=== PATIENT | female | born 1995 | race Caucasian/White ===

== ENCOUNTER 2020-06-30 08:00 | Day surgery (SDC) | payer OTHER, MEDICARE ==
[~2020-06-30] VITALS: Ht 152.4 cm; Wt 76.8 kg
[~2020-06-30 08:00] MED LIST: BUPROPION HCL100 MG PO; CLONAZEPAM0.5 MG PO; ESTRADIOL NORETH PO; FLUOXETINE HCL40 MG PO; IBUPROFEN600 MG PO; L-METHYLFOLATE15 M1 PO; LEVOTHYROXINE50 MCG PO; LORATADINE10 MG PO; METFORMIN HCL500 MG PO; OXYCODON-ACETA1 EAC2 PO; QUETIAPINE FUM300 MG PO; RISPERIDONE0.5 MG PO; TOPIRAMATE25 MG PO; TYLENOL EXTRA500 MG PO; VITAMIN D250000 UNIT PO
--- NOTE | 2020-06-30 09:51 | NUR ---
PATIENT AND MOTHER UPDATED ON SURGICAL SCHEDULE. BOTH VERBALIZE UNDERSTANDING AND BOTH DENY NEEDS AT THIS TIME.
--- NOTE | 2020-06-30 11:19 | NUR ---
06/30/20 1119 Jyothi Kirby 1115 PT TO PACU DRAWSY, O2 VIA MASK AT 7L
--- NOTE | 2020-06-30 14:51 | EKG ---
[facility] [address] [place], [place] [address] Signed Normal sinus rhythm Normal ECG When compared with ECG of 06-MAR-2019 07:43, No significant change was found Confirmed by SAGE BAILON DO ([id number]) on 06/30/2020 2:51:14 PM Electronically Signed By: SAEG BAILON DO 06/30/20 145 PATIENT NAME: MARITZA PEDERSON DARIELA Electrocardiogram DATE OF : [birth year] PHYSICIAN: SAGE BAILON DO REPORT #: [id number] REPORT IS CONFIDENTIAL AND NOT TO BE RELEASED WITHOUT AUTHORIZATION
--- NOTE | 2020-07-06 12:37 | OR ---
[facility] [address] [place], [place] [address] Signed DATE OF OPERATION: 06/30/2020 SURGEON: Nadia Angeles MD PREOPERATIVE DIAGNOSES: Misplaced IUD, Down syndrome, abnormal bleeding. POSTOPERATIVE DIAGNOSES: Misplaced IUD, Down syndrome, abnormal bleeding. PROCEDURE: Removal of misplaced IUD and replacement with Mirena IUD. ANESTHESIA: MAC. ESTIMATED BLOOD LOSS: Minimal. DRAINS: None. INDICATIONS AND FINDINGS: The patient is a 25-year-old female, 0 who is affected by Down syndrome. She does not do well with any vaginal bleeding. She has used the Mirena previously with good results. Her IUD was replaced last year and initially she did very well, but over the last few months, she had increasing bleeding and cramping. An ultrasound revealed that the IUD was in the lower segment of the uterus. Because of this, this was felt necessary to remove and replace this. At the time of surgery, exam under anesthesia revealed that she is virginal. She had a normal-size uterus, which was midposition. The uterus sounded to 7.5 cm. DESCRIPTION OF PROCEDURE: The patient was prepped and draped in the dorsal lithotomy position. A medium Caty speculum was placed and the anterior lip of the cervix was grasped with a single-tooth tenaculum. The Mirena IUD was then removed without any difficulty. The cavity was then sounded to 7.5 cm. The endocervical canal was then dilated slightly. The Mirena IUD was then placed at the fundus of the uterus and deployed per instructions. Following this, the strings were trimmed and the tenaculum removed. There was no evidence of any ongoing bleeding from the cervix. The speculum was then removed. Electronically Signed By: NADIA ANGELES MD 07/06/20 1237 PATIENT NAME: BGMARITZA LYLE OPERATIVE REPORT DATE OF : [birth year] REPORT #: [id number] PHYSICIAN: NADIA ANGELES MD PCP: ODILIA ALEXANDER PAC REPORT IS CONFIDENTIAL AND NOT TO BE RELEASED WITHOUT AUTHORIZATION [facility] [address] [place] [id number] Signed The patient was taken to the recovery room in good condition. Nadia Angeles MD PJW/MODL /[id number] Copies: ~ Electronically Signed By: NADIA ANGELES MD 07/06/20 1237 PATIENT NAME: BGMARITZA OPERATIVE REPORT DATE OF : [birth year] REPORT #: [id number] PHYSICIAN: NADIA ANGELES MD PCP: ODILIA ALEXANDER PAC REPORT IS CONFIDENTIAL AND NOT TO BE RELEASED WITHOUT AUTHORIZATION
== END 2020-06-30 12:15 | disposition home or self-care (01) ==
LOC: DS 08:00
PROVIDERS: ATTEND Obstetrics & Gynecology
PROC: 0UH97HZ Insertion of Contraceptive Device into Uterus, Via Natural or Artificial Opening (ICD-10-PCS; 2020-06-30)
PROC: 0UPD7HZ Removal of Contraceptive Device from Uterus and Cervix, Via Natural or Artificial Opening (ICD-10-PCS; principal; 2020-06-30 09:15)
DX: T83.32XA Displacement of intrauterine contraceptive device, initial encounter (principal); E78.00 Pure hypercholesterolemia, unspecified; F34.1 Dysthymic disorder; E66.9 Obesity, unspecified; Q90.9 Down syndrome, unspecified; I10 Essential (primary) hypertension; E11.9 Type 2 diabetes mellitus without complications; J45.909 Unspecified asthma, uncomplicated; G43.909 Migraine, unspecified, not intractable, without status migrainosus; N93.9 Abnormal uterine and vaginal bleeding, unspecified
CPT/HCPCS: 00940; 93005; 93010; J1885; J2001; J2250; J2405; J2704; J2765; J7121

== ENCOUNTER 2020-11-04 17:27 | Emergency (ER) | payer OTHER, MEDICARE ==
[~2020-11-04] VITALS: Ht 152.4 cm; Wt 76.7 kg
--- OUTSIDE RECORDS SUMMARY | 2020-11-04 17:30 | XMS ---
PreManage Notification: MARITZA PEDERSON Security Machine Stemmer Events No recent Security Events currently on file CRITERIA MET - [facility] CARE PROVIDERS There are no care providers on record at this time. Steven has no Care Guidelines for this patient. [place] VISIT COUNT (12 MO.) 1 [facility] [place] TOTAL 1 NOTE: Visits indicate total known visits. ED/C VISIT TRACKING (12 MO.) 11/04/2020 17:28 [facility] [place] TYPE: Emergency COMPLAINT: - URINE PROBLEM,WEAKNESS INPATIENT VISIT TRACKING (12 MO.) No inpatient visits to display in this time frame [email or web address]
== END 2020-11-04 21:56 | disposition home or self-care (01) ==
LOC: ED 17:27
DX: R42 Dizziness and giddiness (principal); R53.83 Other fatigue; R41.0 Disorientation, unspecified; T50.915A Adverse effect of multiple unspecified drugs, medicaments and biological substances, initial encounter; Q90.9 Down syndrome, unspecified; Z79.899 Other long term (current) drug therapy
CPT/HCPCS: 80053; 81001; 84443; 85025; 99284; J7030

== ENCOUNTER 2020-11-09 17:46 | Emergency (ER) | payer OTHER, MEDICARE ==
[~2020-11-09] VITALS: Ht 152.4 cm; Wt 74.8 kg
--- OUTSIDE RECORDS SUMMARY | 2020-11-09 17:48 | XMS ---
PreManage Notification: MARITZA PEDERSON Security Crozer Events No recent Security Events currently on file CRITERIA MET - [facility] - 2 Visits in 30 Days CARE PROVIDERS YOHANNES PEPE Registered Nurse: Psychiatric/Mental 11/05/2020-Current Health PHONE: Unknown Steven has no Care Guidelines for this patient. Venus VISIT COUNT (12 MO.) 2 [facility] TOTAL 2 NOTE: Visits indicate total known visits. ED/UCC VISIT TRACKING (12 MO.) 11/09/2020 17:47 [facility] [place] TYPE: Emergency COMPLAINT: - BRUISING/WEAKNESS 11/04/2020 17:28 [facility] [place] TYPE: Emergency COMPLAINT: - URINE PROBLEM,WEAKNESS DIAGNOSES: - Dizziness and giddiness - Disorientation, unspecified - Down syndrome, unspecified - Other fatigue - Adverse effect of multiple unspecified drugs, medicaments and biological substances, initial encounter - Other superintendent marine oil terminal (current) drug therapy - Weakness INPATIENT VISIT TRACKING (12 MO.) No inpatient visits to display in this time frame [email or web address]
[2020-11-09] MEDS ORDERED: AMANTADINE100 M1 PO (18:32)
[2020-11-09] MEDS ORDERED: TRILEPTAL300 MG PO (18:33)
--- NOTE | 2020-11-10 13:34 | EKG ---
[facility] [address] [facility] [place] [address] Signed Normal sinus rhythm Normal ECG When compared with ECG of 30-JUN-2020 09:32, No significant change was found Confirmed by SILVA DONNELLY MD ([id number]) on 11/10/2020 1:34:40 PM Electronically Signed By: SILVA DONNELLY MD 11/10/20 1334 PATIENT NAME: PEDERSONMARITZA Electrocardiogram DATE OF : [birth year] PHYSICIAN: SILVA DONNELLY MD REPORT #: [id number] REPORT IS CONFIDENTIAL AND NOT TO BE RELEASED WITHOUT AUTHORIZATION
== END 2020-11-09 21:00 | disposition home or self-care (01) ==
LOC: ED 17:46
DX: R25.1 Tremor, unspecified (principal); T36.8X5A Adverse effect of other systemic antibiotics, initial encounter; Z79.899 Other long term (current) drug therapy
CPT/HCPCS: 51701; 71045; 80053; 81001; 83605; 85025; 87040; 93005; 93010; 99284-25; J7030

== ENCOUNTER 2023-09-11 13:45 | Emergency (ER) | payer OTHER, MEDICARE ==
[~2023-09-11] VITALS: Ht 152.4 cm; Wt 90.9 kg
[~2023-09-11 13:45] MED LIST changes: +AMANTADINE100 M1 PO; +TRILEPTAL300 MG PO; +ZYRTEC10 MG PO
--- OUTSIDE RECORDS SUMMARY | 2023-09-11 13:48 | XMS ---
PreManage Notification: MARITZA PEDERSON Security Product Info Specialist Events No recent Security Events currently on file CRITERIA MET - [employer] CARE PROVIDERS ODILIA ALEXANDER Physician Senior Electrical Controls Engineer 11/10/2020-Current PHONE: Unknown YOHANNES PEPE Nurse Practitioner: Psychiatric/Mental 11/05/2020-[facility] PHONE: [phone] -, [place]- Dentist: Corporate Wellness Coordinator [facility] PHONE: [phone] -[place]- Dentist: Corporate Wellness Coordinator [facility] PHONE: [phone] Steven has no Care Guidelines for this patient. Venus VISIT COUNT (12 MO.) 1 [facility] [place] TOTAL 1 NOTE: Visits indicate total known visits. ED/UCC VISIT TRACKING (12 MO.) 09/11/2023 13:46 [facility] [place] TYPE: Emergency COMPLAINT: - MEDICAL CLEARANCE, ALLERGIC MEDICATION REACTION INPATIENT VISIT TRACKING (12 MO.) No inpatient visits to display in this time frame [email or web address]
[2023-09-11 14:27] LABS: BILIRUBIN, URINE NEGATIVE (negative); BLOOD/HGB, URINE NEGATIVE (Negative); KETONE, URINE NEGATIVE (Negative); LEUK ESTERASE, URINE SMALL (negative); NITRITE, URINE NEGATIVE (negative); PH, URINE 5.5 (5-7)
[2023-09-11 14:34] LABS: EPITHELIAL CELLS, URINE SQUAMOUS 2+ /lpf (0-1+); RED BLOOD CELLS, URINE 0-1 /hpf (0-5)
[2023-09-11 14:35] LABS: BACTERIA, URINE NONE SEEN /hpf (negative); CASTS, URINE NONE SEEN \\lpf; COLLECTION TYPE, URINE CLEAN CATCH; CRYSTALS, URINE NONE SEEN (0-1+); REFLEX CULTURE, URINE No (No)
[2023-09-11 14:44] LABS: AMPHETAMINES, URINE NEGATIVE (NEGATIVE); BARBITURATES, URINE NEGATIVE (NEGATIVE); BENZODIAZEPINE, URINE NEGATIVE (NEGATIVE); BUPRENORPHINE, URINE NEGATIVE (NEGATIVE); CANNABINOID, URINE NEGATIVE (NEGATIVE); COCAINE, URINE NEGATIVE (NEGATIVE); ECSTASY, URINE NEGATIVE (NEGATIVE); FENTANYL, URINE NEGATIVE (NEGATIVE); METHADONE, URINE NEGATIVE (NEGATIVE); OPIATES, URINE NEGATIVE (NEGATIVE); OXYCODONE, URINE NEGATIVE (NEGATIVE); PHENCYCLIDINE, URINE NEGATIVE (NEGATIVE)
[2023-09-11 14:50] LABS: EOSINOPHILS 1.3 % (0-6); HEMATOCRIT 45.2 % (35.0-50.0); HEMOGLOBIN 15.4 g/dL (12.0-18.0); LYMPHOCYTES 37.8 % (24-44); MCH 34.2 (27-36); MCHC 33.9 g/dl (30-36); MCV 100.7 fl (81-99); MONOCYTES 5.7 % (0-12); NEUTROPHILS 54.2 % (39-80); PLATELET COUNT 230 K/uL (140-440); RBC 4.49 M/ul (4.3-5.7); RDW 13.6 (10.5-15.0)
[2023-09-11] MEDS ORDERED: hydrOXYzine pamoate 25 MG CAP PO PRN (15:00)
[2023-09-11] MEDS ORDERED: ESTRACE2 MG PO (15:08)
[2023-09-11] MEDS ORDERED: GUANFACINE HCL E3 MG PO (15:08)
[2023-09-11] MEDS ORDERED: TOPAMAX50 MG PO (15:10)
[2023-09-11] MEDS ORDERED: FLUOXETINE HCL60 MG PO (15:14)
[2023-09-11 15:15] LABS: ACETAMINOPHEN 0 ug/mL (10-30); ALBUMIN 3.2 g/dL (3.4-5.0); ALBUMIN/GLOBULIN RATIO 0.76 (1.1-2.4); ALCOHOL, MEDICAL <3 ng/dL (<3); ALKALINE PHOSPHATASE 78 U/L (46-116); ALT (SGPT) 28 U/L (14-59); ANION GAP 15.8 (7-21); AST (SGOT) 20 U/L (15-37); BILIRUBIN, TOTAL 0.4 ng/dL (0.2-1.0); BUN/CREATININE RATIO 13.15 (6.0-28.6); CALCIUM 8.9 mg/dL (8.5-10.1); CARBON DIOXIDE 22 mmol/L (21-32); CHLORIDE 104 mmol/L (98-107); CREATININE, SERUM 0.76 mg/dL (0.55-1.02); GLOMERULAR FILTRATION RATE,EST 109 mL/min (>60); POTASSIUM 3.8 mmol/L (3.5-5.1); PROTEIN, TOTAL 7.4 g/dL (6.4-8.2); SALICYLATE 1.4 mg/dL (2.8-20.0); TSH, 3RD GENERATION 2.622 uIU/mL (0.358-3.740); UREA NITROGEN 10 mg/dL (7-18)
[2023-09-11] MEDS ORDERED: CLARITIN10 M2 PO (15:16)
[2023-09-11] MEDS ORDERED: SEROQUEL50 MG PO (15:16)
[2023-09-11] MEDS ORDERED: ATIVAN1 MG PO (15:28)
[2023-09-11] MEDS ORDERED: LEVOTHYROXINE50 MC1 PO (15:28)
[2023-09-11] MEDS ORDERED: VISTARIL25 MG PO (16:38)
[2023-09-11 17:10] VITALS: BP 94/64
== END 2023-09-11 17:10 | disposition home or self-care (01) ==
LOC: ED 13:45
PROVIDERS: Emergency Medicine
DX: F41.9 Anxiety disorder, unspecified (principal); R45.1 Restlessness and agitation; F84.0 Autistic disorder; Q90.9 Down syndrome, unspecified; F31.9 Bipolar disorder, unspecified; Z79.890 Hormone replacement therapy; Z79.899 Other long term (current) drug therapy
CPT/HCPCS: 36415; 80053; 80307; 81001; 84443; 84703; 85025; 99284; G0480; Q0177

== ENCOUNTER 2023-10-02 19:31 | Emergency (ER) | payer OTHER, MEDICARE ==
[~2023-10-02] VITALS: Ht 152.4 cm; Wt 89.1 kg
[~2023-10-02 19:31] MED LIST changes: +ATIVAN1 MG PO; +CLARITIN10 M2 PO; +ESTRACE2 MG PO; +FLUOXETINE HCL60 MG PO; +GUANFACINE HCL E3 MG PO; +LEVOTHYROXINE50 MC1 PO; +SEROQUEL50 MG PO; +TOPAMAX50 MG PO; +VISTARIL25 MG PO
--- OUTSIDE RECORDS SUMMARY | 2023-10-02 19:34 | XMS ---
PreManage Notification: MARITZA PEDERSON Security Section Leader Screen Printing Events No recent Security Events currently on file CRITERIA MET - [facility] - [facility] [place] [facility] - 2 Visits in 30 Days CARE PROVIDERS ODILIA ALEXANDER Physician Vegetable Farm Manager 11/10/2020-Current PHONE: Unknown YOHANNES PEPE Nurse Practitioner: Psychiatric/Mental 11/05/2020-[facility] PHONE: [phone] -, [place]- Dentist: Tack Cutter [facility] PHONE: [phone] -[place]- Dentist: Tack Cutter [facility] PHONE: [phone] Steven has no Care Guidelines for this patient. Venus VISIT COUNT (12 MO.) 2 [facility] [place] TOTAL 2 NOTE: Visits indicate total known visits. ED/UCC VISIT TRACKING (12 MO.) 10/02/2023 19:32 [facility] [place] TYPE: Emergency COMPLAINT: - WEAKNESS 09/11/2023 13:[address] [facility] TYPE: Emergency COMPLAINT: - MEDICAL CLEARANCE, ALLERGIC MEDICATION REACTION DIAGNOSES: - Anxiety disorder, unspecified - Autistic disorder - Bipolar disorder, unspecified - Down syndrome, unspecified - Hormone replacement therapy - Other fine chemicals operator (current) drug therapy - Other symptoms and signs involving appearance and behavior - Restlessness and agitation INPATIENT VISIT TRACKING (12 MO.) No inpatient visits to display in this time frame [email or web address]
[2023-10-02] MEDS ORDERED: SODIUM CHLORIDE 0.9% 1,000 ML IV ONE (20:00)
[2023-10-02 20:02] LABS: BASOPHILS 1.1 % (0-2); HEMATOCRIT 44.6 % (35.0-50.0); HEMOGLOBIN 15.6 g/dL (12.0-18.0); LYMPHOCYTES 41.3 % (24-44); MCH 34.5 (27-36); MCV 98.5 fl (81-99); NEUTROPHILS 48.6 % (39-80); PLATELET COUNT 221 K/uL (140-440); RBC 4.53 M/ul (4.3-5.7); RDW 13.4 (10.5-15.0)
[2023-10-02 20:04] LABS: ALBUMIN 3.2 g/dL (3.4-5.0); ALBUMIN/GLOBULIN RATIO 0.8 (1.1-2.4); ANION GAP 12.5 (7-21); BILIRUBIN, TOTAL 0.6 ng/dL (0.2-1.0); BUN/CREATININE RATIO 15.18 (6.0-28.6); CALCIUM 8.5 mg/dL (8.5-10.1); CREATININE, SERUM 0.79 mg/dL (0.55-1.02); POTASSIUM 3.5 mmol/L (3.5-5.1); PROTEIN, TOTAL 7.2 g/dL (6.4-8.2)
[2023-10-02 20:24] LABS: BILIRUBIN, URINE NEGATIVE (negative); BLOOD/HGB, URINE NEGATIVE (Negative); KETONE, URINE NEGATIVE (Negative); LEUK ESTERASE, URINE TRACE (negative); NITRITE, URINE NEGATIVE (negative)
[2023-10-02 20:30] LABS: BACTERIA, URINE 2+ /hpf (negative); CASTS, URINE NONE SEEN \\lpf; CRYSTALS, URINE NONE SEEN (0-1+); EPITHELIAL CELLS, URINE SQUAMOUS 1+ /lpf (0-1+); RED BLOOD CELLS, URINE 0-1 /hpf (0-5); REFLEX CULTURE, URINE Yes (No)
[2023-10-02 20:38] LABS: INFLUENZA B NAA NEGATIVE (NEGATIVE); RESPIRATORY SYNCYTIAL VIR NAA NEGATIVE (NEGATIVE)
[2023-10-02] MEDS ORDERED: CEFTRIAXONE/SODIUM CHLORIDE 1 GM/100 ML PIGGYBACK IV SCH (21:00)
[2023-10-02] MEDS ORDERED: TOPIRAMATE 25 MG TAB PO SCH (21:25)
[2023-10-02] MEDS ORDERED: hydrOXYzine pamoate 25 MG CAP PO PRN (21:30)
[2023-10-02] MEDS ORDERED: QUETIAPINE FUMARATE 100 MG TAB PO SCH (21:30)
[2023-10-02] MEDS ORDERED: LORazepam 1 MG TAB PO PRN (21:30)
[2023-10-03] MEDS ORDERED: LEVOTHYROXINE SODIUM 50 MCG TAB PO SCH (07:00)
[2023-10-03] MEDS ORDERED: NITROFURANTOIN MONOHYD MACROCR 100 MG CAP PO SCH (08:00)
[2023-10-03] MEDS ORDERED: FLUOXETINE HCL 20 MG CAP PO SCH (09:00)
[2023-10-03] MEDS ORDERED: QUETIAPINE FUMARATE 25 MG TAB PO SCH (09:00)
[2023-10-03] MEDS ORDERED: QUETIAPINE FUMARATE 100 MG TAB PO SCH (21:00)
[2023-10-06 13:12] VITALS: BP 103/57
[2023-10-07] MEDS ORDERED: FLUOXETINE HCL 20 MG CAP PO SCH (09:00)
== END 2023-10-06 13:12 | disposition home or self-care (01) ==
LOC: ED 19:31
PROVIDERS: Family Medicine
DX: Q90.9 Down syndrome, unspecified (principal); Q89.9 Congenital malformation, unspecified; R62.50 Unspecified lack of expected normal physiological development in childhood; Z79.899 Other long term (current) drug therapy; Z79.890 Hormone replacement therapy; Z63.8 Other specified problems related to primary support group
CPT/HCPCS: 36415; 71045; 80053; 81001; 83880; 85025; 87088; 87502; A9270; A9270-GY; J0696; J7030; Q0177; U0002

== ENCOUNTER 2023-10-19 17:29 | Emergency (ER) | payer OTHER, MEDICARE ==
[~2023-10-19] VITALS: Ht 152.4 cm; Wt 89.4 kg
--- OUTSIDE RECORDS SUMMARY | 2023-10-19 17:32 | XMS ---
PreManage Notification: MARITZA PEDERSON Security Chaplaincy Events No recent Security Events currently on file CRITERIA MET - [facility] - [facility] - 2 Visits in 30 Days CARE PROVIDERS ODILIA ALEXANDER Physician Pearl Cutter 11/10/2020-Current PHONE: Unknown YOHANNES PEPE Nurse Practitioner: Psychiatric/Mental 11/05/2020-Current Health PHONE: [phone] -[facility] Dentist: Senior Web Analyst [facility] PHONE: [phone] -[place]- Dentist: Senior Web Analyst Current [facility] PHONE: [phone] -, [place]- Dentist: Senior Web Analyst [facility] PHONE: [phone] Steven has no Care Guidelines for this patient. Venus VISIT COUNT (12 MO.) [address] [facility] TOTAL 3 NOTE: Visits indicate total known visits. ED/UCC VISIT TRACKING (12 MO.) 10/19/2023 17:29 [facility] [place] TYPE: Emergency COMPLAINT: - NOT FEELING WELL 10/02/2023 19:32 [facility] [place] TYPE: Emergency COMPLAINT: - WEAKNESS DIAGNOSES: - Anorexia - Congenital malformation, unspecified - Down syndrome, unspecified - Hormone replacement therapy - Other tube building machine operator (current) drug therapy - Other specified problems related to primary support group - Unspecified lack of expected normal physiological development in childhood 09/11/2023 13:46 [facility] [place] TYPE: Emergency COMPLAINT: - MEDICAL CLEARANCE, ALLERGIC MEDICATION REACTION DIAGNOSES: - Anxiety disorder, unspecified - Autistic disorder - Bipolar disorder, unspecified - Down syndrome, unspecified - Hormone replacement therapy - Other tube building machine operator (current) drug therapy - Other symptoms and signs involving appearance and behavior - Restlessness and agitation INPATIENT VISIT TRACKING (12 MO.) No inpatient visits to display in this time frame [email or web address]
[2023-10-19 19:37] LABS: BILIRUBIN, URINE NEGATIVE (negative); BLOOD/HGB, URINE NEGATIVE (Negative); KETONE, URINE NEGATIVE (Negative); LEUK ESTERASE, URINE NEGATIVE (negative); NITRITE, URINE NEGATIVE (negative)
[2023-10-19 19:44] LABS: BACTERIA, URINE NONE SEEN /hpf (negative); CASTS, URINE HYALINE 1+ \\lpf; CRYSTALS, URINE NONE SEEN (0-1+); EPITHELIAL CELLS, URINE SQUAMOUS 2+ /lpf (0-1+); RED BLOOD CELLS, URINE 0-1 /hpf (0-5); REFLEX CULTURE, URINE No (No)
[2023-10-19 19:45] LABS: COLLECTION TYPE, URINE CLEAN CATCH
[2023-10-19] MEDS ORDERED: LACTATED RINGER'S 1,000 ML IV ONE (21:00)
[2023-10-19 21:15] LABS: BASOPHILS 0.8 % (0-2); EOSINOPHILS 2.9 % (0-6); HEMATOCRIT 50.3 % (35.0-50.0); HEMOGLOBIN 17.1 g/dL (12.0-18.0); LYMPHOCYTES 36.6 % (24-44); MCH 33.9 (27-36); MCHC 34.1 g/dl (30-36); MCV 99.5 fl (81-99); MONOCYTES 4.9 % (0-12); NEUTROPHILS 54.8 % (39-80); PLATELET COUNT 233 K/uL (140-440); RBC 5.06 M/ul (4.3-5.7); RDW 13.4 (10.5-15.0)
[2023-10-19 21:38] LABS: ALBUMIN 3.1 g/dL (3.4-5.0); ALBUMIN/GLOBULIN RATIO 0.74 (1.1-2.4); ANION GAP 11.1 (7-21); BILIRUBIN, TOTAL 0.4 ng/dL (0.2-1.0); BUN/CREATININE RATIO 18.66 (6.0-28.6); CREATININE, SERUM 0.75 mg/dL (0.55-1.02); MAGNESIUM 1.9 mg/dL (1.8-2.4); POTASSIUM 4.1 mmol/L (3.5-5.1); PROTEIN, TOTAL 7.3 g/dL (6.4-8.2)
[2023-10-19 22:58] VITALS: BP 105/65
== END 2023-10-19 22:59 | disposition home or self-care (01) ==
LOC: ED 17:29
PROVIDERS: Internal Medicine
DX: E86.0 Dehydration (principal); Q90.9 Down syndrome, unspecified; F31.9 Bipolar disorder, unspecified; Z79.890 Hormone replacement therapy; Z79.899 Other long term (current) drug therapy
CPT/HCPCS: 36415; 80053; 81001; 83735; 85025; 99284; J7121

== ENCOUNTER 2024-01-25 14:55 | Emergency (ER) | payer OTHER, MEDICARE ==
[~2024-01-25] VITALS: Ht 152.4 cm; Wt 85.9 kg
[2024-01-25 15:48] LABS: BILIRUBIN, URINE POSITIVE (negative); BLOOD/HGB, URINE NEGATIVE (Negative); KETONE, URINE NEGATIVE (Negative); LEUK ESTERASE, URINE TRACE (negative); NITRITE, URINE NEGATIVE (negative)
[2024-01-25 15:59] LABS: BACTERIA, URINE RARE /hpf (negative); CASTS, URINE NONE SEEN \\lpf; COLLECTION TYPE, URINE CLEAN CATCH; CRYSTALS, URINE NONE SEEN (0-1+); EPITHELIAL CELLS, URINE SQUAMOUS 3+ /lpf (0-1+); RED BLOOD CELLS, URINE 0-1 /hpf (0-5); REFLEX CULTURE, URINE No (No)
[2024-01-25] MEDS ORDERED: SODIUM CHLORIDE 0.9% 1,000 ML IV PRN (16:45)
[2024-01-25 19:54] LABS: MCH 33.9 (27-36); MCHC 33.9 g/dl (30-36)
[2024-01-25 19:57] LABS: BASOPHILS 0.7 % (0-2); HEMATOCRIT 44.9 % (35.0-50.0); HEMOGLOBIN 15.2 g/dL (12.0-18.0); LYMPHOCYTES 32.6 % (24-44); MCV 99.9 fl (81-99); MONOCYTES 5.1 % (0-12); NEUTROPHILS 59.6 % (39-80); PLATELET COUNT 223 K/uL (140-440)
[2024-01-25 20:10] LABS: ACETAMINOPHEN 0 ug/mL (10-30); ALCOHOL, MEDICAL <3 ng/dL (<3); SALICYLATE 0.7 mg/dL (2.8-20.0); TSH, 3RD GENERATION 1.088 uIU/mL (0.358-3.740)
[2024-01-25 20:17] LABS: AMPHETAMINES, URINE NEGATIVE (NEGATIVE); BARBITURATES, URINE NEGATIVE (NEGATIVE); BENZODIAZEPINE, URINE NEGATIVE (NEGATIVE); BUPRENORPHINE, URINE NEGATIVE (NEGATIVE); CANNABINOID, URINE NEGATIVE (NEGATIVE); COCAINE, URINE NEGATIVE (NEGATIVE); ECSTASY, URINE POSITIVE (NEGATIVE); FENTANYL, URINE NEGATIVE (NEGATIVE); METHADONE, URINE NEGATIVE (NEGATIVE); OPIATES, URINE NEGATIVE (NEGATIVE); OXYCODONE, URINE NEGATIVE (NEGATIVE); PHENCYCLIDINE, URINE NEGATIVE (NEGATIVE)
[2024-01-25 20:57] VITALS: BP 0/0
== END 2024-01-25 20:57 | disposition home or self-care (01) ==
LOC: ED 14:55
PROVIDERS: Emergency Medicine
DX: R30.0 Dysuria (principal); E86.0 Dehydration; Q90.9 Down syndrome, unspecified; F84.0 Autistic disorder; F31.9 Bipolar disorder, unspecified; Z79.890 Hormone replacement therapy; Z79.899 Other long term (current) drug therapy
CPT/HCPCS: 36415; 80307; 81001; 84443; 84703; 85025; 99283; G0480; J7030

== ENCOUNTER 2024-01-30 20:37 | Emergency (ER) | payer OTHER, MEDICARE ==
[~2024-01-30] VITALS: Ht 152.4 cm; Wt 100.0 kg
--- OUTSIDE RECORDS SUMMARY | 2024-01-30 20:40 | XMS ---
PreManage Notification: MARITZA PEDERSON Security Release Specialist Events No recent Security Events currently on file CRITERIA MET - [facility] - 2 Visits in 30 Days CARE PROVIDERS ODILIA ALEXANDER Physician Habitat Conservation Planner 11/10/2020-Current PHONE: Unknown YOHANNES PEPE Nurse Practitioner: Psychiatric/Mental 11/05/2020-Current Health PHONE: [phone] -[facility] Dentist: Inspector [facility] PHONE: [phone] -[place]- Dentist: Inspector [facility] PHONE: [phone] -, [place]- Dentist: Inspector [facility] PHONE: [phone] Steven has no Care Guidelines for this patient. Venus VISIT COUNT (12 MO.) [address] [facility] TOTAL 5 NOTE: Visits indicate total known visits. ED/UCC VISIT TRACKING (12 MO.) 01/30/2024 20:38 [facility] [place] TYPE: Emergency COMPLAINT: - MEDICAL CLEARANCE 01/25/2024 14:56 [facility] [place] TYPE: Emergency COMPLAINT: - POSS UTI DIAGNOSES: - Autistic disorder - Bipolar disorder, unspecified - Dehydration - Down syndrome, unspecified - Dysuria - Hormone replacement therapy - Other director long term care (current) drug therapy 10/19/2023 17:29 [facility] [place] TYPE: Emergency COMPLAINT: - NOT FEELING WELL DIAGNOSES: - Bipolar disorder, unspecified - Dehydration - Dizziness and giddiness - Down syndrome, unspecified - Hormone replacement therapy - Other custodial (current) drug therapy 10/02/2023 19:32 [facility] [place] TYPE: Emergency COMPLAINT: - WEAKNESS DIAGNOSES: - Anorexia - Congenital malformation, unspecified - Down syndrome, unspecified - Hormone replacement therapy - Other custodial (current) drug therapy - Other specified problems related to primary support group - Unspecified lack of expected normal physiological development in childhood 09/11/2023 13:[address] [facility] [place] TYPE: Emergency COMPLAINT: - MEDICAL CLEARANCE, ALLERGIC MEDICATION REACTION DIAGNOSES: - Anxiety disorder, unspecified - Autistic disorder - Bipolar disorder, unspecified - Down syndrome, unspecified - Hormone replacement therapy - Other custodial (current) drug therapy - Other symptoms and signs involving appearance and behavior - Restlessness and agitation INPATIENT VISIT TRACKING (12 MO.) No inpatient visits to display in this time frame [email or web address]
[2024-01-30] MEDS ORDERED: QUETIAPINE FUMARATE 25 MG TAB PO ONE (22:45)
[2024-01-31] MEDS ORDERED: LORazepam 1 MG TAB PO ONE (02:00)
[2024-01-31] MEDS ORDERED: QUETIAPINE FUMARATE 100 MG TAB PO SCH (07:00)
[2024-01-31] MEDS ORDERED: LEVOTHYROXINE SODIUM 50 MCG TAB PO SCH (07:00)
[2024-01-31] MEDS ORDERED: LORazepam 1 MG TAB PO PRN (07:00)
[2024-01-31] MEDS ORDERED: TOPIRAMATE 25 MG TAB PO SCH (09:00)
[2024-01-31] MEDS ORDERED: GUANFACINE HCL 1 MG TAB PO SCH (09:00)
[2024-01-31] MEDS ORDERED: FLUOXETINE HCL 20 MG CAP PO SCH (09:00)
[2024-01-31] MEDS ORDERED: QUETIAPINE FUMARATE 25 MG TAB PO SCH (09:00)
[2024-01-31 15:57] LABS: BILIRUBIN, URINE NEGATIVE (negative); BLOOD/HGB, URINE NEGATIVE (Negative); KETONE, URINE NEGATIVE (Negative); LEUK ESTERASE, URINE NEGATIVE (negative); NITRITE, URINE NEGATIVE (negative); PH, URINE 5.5 (5-7)
[2024-01-31 16:14] LABS: AMPHETAMINES, URINE POSITIVE (NEGATIVE); BARBITURATES, URINE NEGATIVE (NEGATIVE); BENZODIAZEPINE, URINE POSITIVE (NEGATIVE); BUPRENORPHINE, URINE NEGATIVE (NEGATIVE); CANNABINOID, URINE NEGATIVE (NEGATIVE); COCAINE, URINE NEGATIVE (NEGATIVE); ECSTASY, URINE POSITIVE (NEGATIVE); FENTANYL, URINE POSITIVE (NEGATIVE); METHADONE, URINE NEGATIVE (NEGATIVE); OPIATES, URINE NEGATIVE (NEGATIVE); OXYCODONE, URINE NEGATIVE (NEGATIVE); PHENCYCLIDINE, URINE NEGATIVE (NEGATIVE)
[2024-01-31] MEDS ORDERED: ED PATIENT'S OWN MED POCKET #1 XX PRN (18:15)
[2024-01-31] MEDS ORDERED: ziprasidone HCL 40 MG CAP PO SCH (21:00)
[2024-01-31] MEDS ORDERED: lamoTRIgine 25 MG TAB PO SCH (21:00)
[2024-01-31 22:55] LABS: AMPHETAMINES, URINE POSITIVE (NEGATIVE); BARBITURATES, URINE NEGATIVE (NEGATIVE); BENZODIAZEPINE, URINE NEGATIVE (NEGATIVE); BUPRENORPHINE, URINE NEGATIVE (NEGATIVE); CANNABINOID, URINE NEGATIVE (NEGATIVE); COCAINE, URINE NEGATIVE (NEGATIVE); ECSTASY, URINE POSITIVE (NEGATIVE); FENTANYL, URINE POSITIVE (NEGATIVE); METHADONE, URINE NEGATIVE (NEGATIVE); OPIATES, URINE NEGATIVE (NEGATIVE); OXYCODONE, URINE NEGATIVE (NEGATIVE); PHENCYCLIDINE, URINE NEGATIVE (NEGATIVE)
[2024-02-01 08:58] LABS: AMPHETAMINES, URINE NEGATIVE (NEGATIVE); BARBITURATES, URINE NEGATIVE (NEGATIVE); BENZODIAZEPINE, URINE NEGATIVE (NEGATIVE); BUPRENORPHINE, URINE NEGATIVE (NEGATIVE); CANNABINOID, URINE NEGATIVE (NEGATIVE); COCAINE, URINE NEGATIVE (NEGATIVE); ECSTASY, URINE NEGATIVE (NEGATIVE); FENTANYL, URINE NEGATIVE (NEGATIVE); METHADONE, URINE NEGATIVE (NEGATIVE); OPIATES, URINE NEGATIVE (NEGATIVE); OXYCODONE, URINE NEGATIVE (NEGATIVE); PHENCYCLIDINE, URINE NEGATIVE (NEGATIVE)
[2024-02-01] MEDS ORDERED: LEVONORGESTREL/ETHIN.ESTRADIOL 1 EACH TABLET PO SCH (09:00)
[2024-02-01] MEDS ORDERED: LAMICTAL25 MG PO (10:44)
[2024-02-01] MEDS ORDERED: GEODON40 MG PO (10:44)
[2024-02-01] MEDS ORDERED: GEODON20 MG PO (10:44)
[2024-02-01 16:30] VITALS: BP 89/61
== END 2024-02-01 16:30 | disposition home or self-care (01) ==
LOC: ED 20:37
PROVIDERS: Emergency Medicine; Internal Medicine
DX: F91.1 Conduct disorder, childhood-onset type (principal); Q90.9 Down syndrome, unspecified; Z79.899 Other long term (current) drug therapy; Z79.890 Hormone replacement therapy
CPT/HCPCS: 80053; 80307; 81003; 84443; 84703; 85025; 99284; A9270; A9270-GY; G0480

== ENCOUNTER 2024-05-05 20:32 | Emergency (ER) | payer OTHER, MEDICARE ==
[~2024-05-05] VITALS: Ht 152.4 cm; Wt 72.8 kg
[~2024-05-05 20:32] MED LIST changes: +GEODON20 MG PO; +GEODON40 MG PO; +LAMICTAL25 MG PO
--- OUTSIDE RECORDS SUMMARY | 2024-05-05 20:39 | XMS ---
PreManage Notification: MARITZA PEDERSON Security Completion Supervisor Events No recent Security Events currently on file CRITERIA MET - [facility] - 2 Visits in 30 Days CARE PROVIDERS YOHANNES PEPE Nurse Practitioner: Psychiatric/Mental 11/05/2020-[facility] PHONE: [phone] -[facility] Dentist: Revising Clerk Current [facility] PHONE: [phone] -[place]- Dentist: Revising Clerk [facility] PHONE: [phone] -[place]- Dentist: Revising Clerk Current [facility] PHONE: [phone] Steven has no Care Guidelines for this patient. Venus VISIT COUNT (12 MO.) 6 [facility] ([facility] TOTAL 7 NOTE: Visits indicate total known visits. ED/UCC VISIT TRACKING (12 MO.) 05/05/2024 20:32 [facility] [place] TYPE: Emergency COMPLAINT: - MEDICAL CLEARANCE [facility]24 [facility] Emergency DIAGNOSES: - Down syndrome, unspecified - Restlessness and agitation - Unspecified lack of expected normal physiological development in childhood - Aggressive Behavior - Altered Mental Status - EMS 01/30/2024 20:[address] [facility] [place] TYPE: Emergency COMPLAINT: - MEDICAL CLEARANCE DIAGNOSES: - Conduct disorder, childhood-onset type - Down syndrome, unspecified - Hormone replacement therapy - Other skilled nursing (current) drug therapy - Violent behavior 01/25/2024 14:56 [facility] [place] TYPE: Emergency COMPLAINT: - POSS UTI DIAGNOSES: - Autistic disorder - Bipolar disorder, unspecified - Dehydration - Down syndrome, unspecified - Dysuria - Hormone replacement therapy - Other longwall foreman (current) drug therapy 10/19/2023 17:29 [facility] [place] TYPE: Emergency COMPLAINT: - NOT FEELING WELL DIAGNOSES: - Bipolar disorder, unspecified - Dehydration - Dizziness and giddiness - Down syndrome, unspecified - Hormone replacement therapy - Other longwall foreman (current) drug therapy 10/02/2023 19:32 [facility] [place] TYPE: Emergency COMPLAINT: - WEAKNESS DIAGNOSES: - Anorexia - Congenital malformation, unspecified - Down syndrome, unspecified - Hormone replacement therapy - Other longwall foreman (current) drug therapy - Other specified problems related to primary support group - Unspecified lack of expected normal physiological development in childhood 09/11/2023 13:46 [facility] [place] TYPE: Emergency COMPLAINT: - MEDICAL CLEARANCE, ALLERGIC MEDICATION REACTION DIAGNOSES: - Anxiety disorder, unspecified - Autistic disorder - Bipolar disorder, unspecified - Down syndrome, unspecified - Hormone replacement therapy - Other longwall foreman (current) drug therapy - Other symptoms and signs involving appearance and behavior - Restlessness and agitation INPATIENT VISIT TRACKING (12 MO.) No inpatient visits to display in this time frame [email or web address]
[2024-05-05] MEDS ORDERED: TRAZODONE HCL 100 MG TAB PO ONE (23:45)
[2024-05-05] MEDS ORDERED: clonazePAM 1 MG TAB PO ONE (23:45)
[2024-05-05] MEDS ORDERED: ziprasidone HCL 40 MG CAP PO ONE (23:45)
[2024-05-06] MEDS ORDERED: HALOPERIDOL LACTATE 5 MG/ML VIAL ONE
[2024-05-06] MEDS ORDERED: diphenhydrAMINE HCL 50 MG/ML VIAL ONE (00:01)
[2024-05-06] MEDS ORDERED: LORazepam 2 MG/ML VIAL ONE (00:01)
[2024-05-06] MEDS ORDERED: diphenhydrAMINE HCL 50 MG/ML VIAL IM ONE (00:15)
[2024-05-06] MEDS ORDERED: LORazepam 2 MG/ML VIAL IM ONE (00:15)
[2024-05-06] MEDS ORDERED: HALOPERIDOL LACTATE 5 MG/ML VIAL IM ONE (00:15)
[2024-05-06 13:10] LABS: BASOPHILS 0.7 % (0-2); EOSINOPHILS 1.9 % (0-6); HEMATOCRIT 43.8 % (35.0-50.0); HEMOGLOBIN 15.1 g/dL (12.0-18.0); LYMPHOCYTES 36.5 % (24-44); MCH 35.2 (27-36); MCHC 34.5 g/dl (30-36); MCV 101.9 fl (81-99); MONOCYTES 4.7 % (0-12); NEUTROPHILS 56.2 % (39-80); PLATELET COUNT 217 K/uL (140-440); RDW 14.1 (10.5-15.0)
[2024-05-06 13:34] LABS: ACETAMINOPHEN 0 ug/mL (10-30); ALBUMIN 3.2 g/dL (3.4-5.0); ALBUMIN/GLOBULIN RATIO 0.91 (1.1-2.4); ALCOHOL, MEDICAL <3 ng/dL (<3); ALKALINE PHOSPHATASE 53 U/L (46-116); ALT (SGPT) 27 U/L (14-59); ANION GAP 10.7 (7-21); AST (SGOT) 16 U/L (15-37); BILIRUBIN, TOTAL 0.5 ng/dL (0.2-1.0); BUN/CREATININE RATIO 8.16 (6.0-28.6); CALCIUM 8.8 mg/dL (8.5-10.1); CARBON DIOXIDE 27 mmol/L (21-32); CHLORIDE 108 mmol/L (98-107); CREATININE, SERUM 0.98 mg/dL (0.55-1.02); GLOMERULAR FILTRATION RATE,EST 80 mL/min (>60); POTASSIUM 3.7 mmol/L (3.5-5.1); PROTEIN, TOTAL 6.7 g/dL (6.4-8.2); SALICYLATE 0.5 mg/dL (2.8-20.0); TSH, 3RD GENERATION 3.722 uIU/mL (0.358-3.740); UREA NITROGEN 8 mg/dL (7-18)
[2024-05-06 14:52] LABS: INFLUENZA B NAA NEGATIVE (NEGATIVE); RESPIRATORY SYNCYTIAL VIR NAA NEGATIVE (NEGATIVE)
[2024-05-06 18:08] LABS: BILIRUBIN, URINE NEGATIVE (negative); BLOOD/HGB, URINE LARGE (Negative); KETONE, URINE NEGATIVE (Negative); LEUK ESTERASE, URINE NEGATIVE (negative); NITRITE, URINE NEGATIVE (negative); PH, URINE 8.5 (5-7)
[2024-05-06 18:14] LABS: BACTERIA, URINE RARE /hpf (negative); CASTS, URINE NONE SEEN \\lpf; CRYSTALS, URINE NONE SEEN (0-1+); EPITHELIAL CELLS, URINE SQUAMOUS 3+ /lpf (0-1+); RED BLOOD CELLS, URINE 41-50 /hpf (0-5); REFLEX CULTURE, URINE No (No)
[2024-05-06 18:15] LABS: COLLECTION TYPE, URINE CLEAN CATCH
[2024-05-06 18:23] LABS: AMPHETAMINES, URINE NEGATIVE (NEGATIVE); BARBITURATES, URINE NEGATIVE (NEGATIVE); BENZODIAZEPINE, URINE NEGATIVE (NEGATIVE); BUPRENORPHINE, URINE NEGATIVE (NEGATIVE); CANNABINOID, URINE NEGATIVE (NEGATIVE); COCAINE, URINE NEGATIVE (NEGATIVE); ECSTASY, URINE POSITIVE (NEGATIVE); FENTANYL, URINE NEGATIVE (NEGATIVE); METHADONE, URINE NEGATIVE (NEGATIVE); OPIATES, URINE NEGATIVE (NEGATIVE); OXYCODONE, URINE NEGATIVE (NEGATIVE); PHENCYCLIDINE, URINE NEGATIVE (NEGATIVE)
[2024-05-06] MEDS ORDERED: OLANZapine 10 MG TABDIS PO SCH (21:00)
[2024-05-07] MEDS ORDERED: NITROFURANTOIN MONOHYD MACROCR 100 MG CAP PO SCH (08:00)
[2024-05-07] MEDS ORDERED: ziprasidone HCL 40 MG CAP PO SCH (09:00)
[2024-05-07] MEDS ORDERED: LEVONORGESTREL1 EAC1 PO (12:31)
[2024-05-08] MEDS ORDERED: NITROFURANTOIN MONOHYD MACROCR 100 MG CAP ONE (11:54)
--- NOTE | 2024-05-08 19:20 | EKG ---
[facility] [address] [facility] [facility] [place] [address] Signed Normal sinus rhythm with sinus arrhythmia Normal ECG When compared with ECG of 09-NOV-2020 18:51, No significant change was found Confirmed by Jeb Romero MD ([id number]) on 05/08/2024 7:20:44 PM Electronically Signed By: JEB ROMERO MD 05/08/241919 PATIENT NAME: BGMARITZA Electrocardiogram DATE OF : [birth year] PHYSICIAN: JEB ROMERO MD REPORT #: [id number] REPORT IS CONFIDENTIAL AND NOT TO BE RELEASED WITHOUT AUTHORIZATION
[2024-05-11 22:24] LABS: BILIRUBIN, URINE NEGATIVE (negative); BLOOD/HGB, URINE NEGATIVE (Negative); KETONE, URINE NEGATIVE (Negative); LEUK ESTERASE, URINE NEGATIVE (negative); NITRITE, URINE NEGATIVE (negative)
[2024-05-11 22:27] LABS: BACTERIA, URINE RARE /hpf (negative); CASTS, URINE NONE SEEN \\lpf; COLLECTION TYPE, URINE CLEAN CATCH; CRYSTALS, URINE NONE SEEN (0-1+); EPITHELIAL CELLS, URINE SQUAMOUS 2+ /lpf (0-1+); REFLEX CULTURE, URINE No (No)
[2024-05-15] MEDS ORDERED: lamoTRIgine 25 MG TAB PO SCH (09:00)
[2024-05-16 11:48] LABS: INFLUENZA B NAA NEGATIVE (NEGATIVE); RESPIRATORY SYNCYTIAL VIR NAA NEGATIVE (NEGATIVE)
[2024-05-16] MEDS ORDERED: ONDANSETRON 4 MG TAB ODT SL ONE (17:30)
[2024-05-16] MEDS ORDERED: diphenhydrAMINE HCL 50 MG/ML VIAL IM ONE (21:30)
[2024-05-16] MEDS ORDERED: LORazepam 2 MG/ML VIAL IM ONE (21:30)
[2024-05-17] MEDS ORDERED: GUAIFENESIN/CODEINE 5 ML UDC PO ONE (22:45)
[2024-05-17] MEDS ORDERED: ONDANSETRON 4 MG TAB ODT SL ONE (22:45)
[2024-05-18] MEDS ORDERED: GUAIFENESIN/CODEINE 5 ML UDC PO PRN (06:45)
[2024-05-19] MEDS ORDERED: ACETAMINOPHEN 500 MG TAB PO ONE (23:00)
[2024-05-20 00:03] LABS: BILIRUBIN, URINE NEGATIVE (negative); BLOOD/HGB, URINE NEGATIVE (Negative); KETONE, URINE NEGATIVE (Negative); LEUK ESTERASE, URINE NEGATIVE (negative); NITRITE, URINE NEGATIVE (negative); PH, URINE 8.5 (5-7)
[2024-05-20] MEDS ORDERED: lamoTRIgine 25 MG TAB PO SCH (09:00)
[2024-05-21] MEDS ORDERED: LAMICTAL XR50 MG PO (10:13)
[2024-05-21 11:32] VITALS: BP 102/68
== END 2024-05-21 11:34 | disposition home or self-care (01) ==
LOC: ED 20:32
PROVIDERS: Emergency Medicine; Family Medicine
DX: R45.6 Violent behavior (principal); Q90.9 Down syndrome, unspecified; Z79.899 Other long term (current) drug therapy; Z79.890 Hormone replacement therapy
CPT/HCPCS: 36415; 73140; 80053; 80307; 81001; 81003; 84443; 84703; 85025; 87502; 96372; 99285-25; A9270; G0480; J1200; J1630; J2060; U0002